=== PATIENT | male | born 1955 | race Caucasian/White ===

== ENCOUNTER 2018-07-13 07:10 | Day surgery (SDC) | payer OTHER ==
[2018-07-13] MEDS ORDERED: Rocuronium 50 MG/5 ML Vial IV ONE (07:11)
[2018-07-13] MEDS ORDERED: Ondansetron 4 MG/2 ML SDV IVPUSH ONE (07:11)
[2018-07-13] MEDS ORDERED: Lidocaine 2% 100 MG/5 ML Syringe IVPUSH ONE (07:11)
[2018-07-13] MEDS ORDERED: fentaNYL 100 MCG/2 ML SDV IV ONE (07:11)
[2018-07-13] MEDS ORDERED: Succinylcholine 200 MG/10 ML MDV IV ONE (07:11)
[2018-07-13] MEDS ORDERED: Propofol 200 MG/20 ML SDV IV ONE (07:11)
[2018-07-13] MEDS ORDERED: Ketorolac 30 MG/ML SDV IVPUSH ONE (07:11)
[2018-07-13] MEDS ORDERED: Midazolam 1 MG/ML 2 ML SDV IV ONE (07:11)
[2018-07-13] MEDS ORDERED: Lactated Ringers 1,000 ML IV SCH (07:15)
[2018-07-13] MEDS ORDERED: Sodium Chloride 0.9% 10 ML Syringe FLUSH PRN (07:15)
[2018-07-13] MEDS ORDERED: ceFAZolin 2 GM in Premix Bag 1 BAG IV ONE (08:30)
[2018-07-13] MEDS ORDERED: Bupivacaine 0.5% 30 ML SDV ONE (08:46)
[2018-07-13] MEDS ORDERED: Lidocaine 1% with EPINEPHrine 1:200,000 30 ML SDV ONE (08:46)
--- NOTE | 2018-07-13 09:34 | PCM.OPNOTE ---
- General Post-Op/Procedure Note Date of Surgery/Procedure: 07/13/18 Operative Procedure(s): rih repair with mesh Findings: direct hernia Pre Op Diagnosis: inguinal hernia without obstrtuction or gangrene Post-Op Diagnosis: Same Anesthesia Technique: General ET Tube, Local (8 ml 1% lido with epi/0.5% buvipicaine) Primary Surgeon: Keenan Gandhi Anesthesia Provider: Jami Avila Pathology: none Complications: None Condition: Good Free Text/Narrative:: see dictation
[2018-07-13] MEDS ORDERED: Acetaminophen/HYDROcodone 325-5 MG Tab PO ONE (10:18)
--- NOTE | 2018-07-13 10:48 | OR ---
DATE OF OPERATION: 07/13/2018 SURGEON: Keenan Gandhi MD PROCEDURE PERFORMED: Right inguinal hernia repair. PREOPERATIVE DIAGNOSIS: Right inguinal hernia without obstruction or gangrene. POSTOPERATIVE DIAGNOSIS: Right inguinal hernia without obstruction or gangrene. INDICATIONS FOR PROCEDURE: This is a 62-year-old white male with a symptomatic inguinal hernia. He was offered and accepted repair. DESCRIPTION OF OPERATION: After an excellent general endotracheal anesthetic was administered, the patient was prepped and draped in the usual sterile manner. A 1:1 mixture of 1% lidocaine with epinephrine and 0.5% bupivacaine was used to infiltrate the planned incision site. A grand total of 8 mL was used for the entire case. After completing the infiltration of the incision site which essentially was a line that intersected the inguinal ligament between the anterior-superior iliac spine and symphysis pubis was done, a small skin wheal was made medial to the anterior-superior iliac spine and a deep intermuscular injection was used to get the ilioinguinal and genitofemoral nerves. An incision was then made approximately 4 cm in length. The underlying subcu fat was divided using electrocautery. The superficial inferior epigastric vessels were clamped, divided, and tied with 3-0 Vicryl ties. The aponeurosis of the external oblique was exposed, more local was injected underneath the aponeurosis. A rodolfo was made in the aponeurosis, kept out through the external ring. The cord was mobilized and then controlled with a 1-inch Jessica drain. After skeletonizing the cord and ensuring that there was no evidence for hernia, the direct hernia was repaired in the following manner. The transversalis fascia was imbricated down along the inguinal ligament using interrupted 0 Ethibond. The Bard mesh pre-shaped keyhole, size 10 x 4.5 cm, lot number [id number], reference number [id number], expiration date 03/06/2027 was then placed on the floor of the inguinal canal. The inferior edge was then sutured using a running 2-0 Prolene. The keyhole was then closed using 2-0 Prolene as well. SorbaFix was used to tack the mesh to the floor of the inguinal canal. The ilioinguinal nerve was going to become entrapped in the mesh before this was clamped, divided, transected to prevent neuroma formation. The wound was then irrigated after returning the cord to normal anatomic position. A 3-0 Vicryl was used to approximate the aponeurosis. The Sánchez's was reapproximated with 3- 0 Vicryl as well and a running subcu 4-0 Vicryl was used to close the skin. Needle, sponge, and instrument counts were reported as correct. The patient was taken to recovery room in good condition. /[id number] /MODL
[2018-07-13 12:16] VITALS: BP 120/66
== END 2018-07-13 12:06 | disposition home or self-care (01) ==
LOC: FB.SDS 07:10
PROVIDERS: ATTEND Surgery
DX: K40.90 Unilateral inguinal hernia, without obstruction or gangrene, not specified as recurrent (principal)
CPT/HCPCS: 49505; A9270; C1781; J0330; J0690; J1885; J2001; J2250; J2405; J2704; J3010; J3490; J7120